=== PATIENT | female | born 1970 | race Caucasian/White ===

== ENCOUNTER 2020-03-10 13:45 | Emergency (ER) | payer OTHER, SELFPAY ==
[2020-03-10 14:04] VITALS: BP 99/64; PULSE 72; RESP 17; TEMP 36.5; O2SAT 100
--- NOTE | 2020-03-10 15:17 | ED.DENTAL ---
HPI - Dental/Oral General Chief complaint: Dental/Oral Stated complaint: TOOTH ABSCESS Time Seen by Provider: 03/10/20 14:11 Source: patient Mode of arrival: ambulatory Limitations: no limitations History of Present Illness HPI Narrative: This is a 50-year-old female that presents to the emergency department for toothache worsening over the last week. Reports she has had a cracked tooth for some time. Reports she has had worsening pain and is been unable to see a dentist. Denies fever. MD Complaint: tooth pain Location: Tooth # (30) Related Data Home Medications Medication Instructions Recorded Confirmed oxybutynin chloride 03/10/20 03/10/20 venlafaxine mg PO 03/10/20 Allergies Allergy/AdvReac Type Severity Reaction Status Date / Time naproxen Allergy Unknown Anaphylactic Verified 03/10/20 14:06 Shock Review of Systems Review of Systems: Narrative: CONSTITUTIONAL: Denies fever ENT: Reports dentalgia All systems reviewed & are unremarkable except as noted in HPI and below PMFSH Past Medical History Medical History (Updated 03/10/20 @ 15:22 by Ashley Carter PA-C) History of depression Family History Family History (Updated 11/11/14 @ 14:05 by DOCTOR UNKNOWN) Other Depression Family history of attention deficit hyperactivity disorder (ADHD) Family history of chronic obstructive pulmonary disease Family history of gynecological problem Social History Social History (Updated 03/10/20 @ 15:22 by Ashley Carter PA-C) Substance use: never Gender identity (if verbalized by the patient): Female Exam Narrative: Exam Narrative: GENERAL: Well-appearing, well-nourished, and in no acute distress. HEAD: Normocephalic, atraumatic. EYES: EOMI. ENT: Mucous membranes moist. Oropharynx without tonsillar hypertrophy exudate or other lesions. Tooth #30 tender to palpation and cracked, no surrounding erythema or fluctuance to suggest abscess NECK: Supple. No adenopathy or masses. CHEST: Airway patent EXTREMITIES: Normal range of motion. No edema. SKIN: Warm, dry, no rash. NEURO: No focal deficits. Alert and oriented x3. PSYCH: Normal mood and affect Course Vital Signs Vital signs: Vital Signs Temperature 97.7 F 03/10/20 14:04 Pulse Rate 72 03/10/20 14:04 Respiratory Rate 17 03/10/20 14:04 Blood Pressure 99/64 L 03/10/20 14:04 Pulse Oximetry 100 03/10/20 14:04 Temperature 97.7 F 03/10/20 14:04 Pulse Rate 72 03/10/20 14:04 Respiratory Rate 17 03/10/20 14:04 Blood Pressure 99/64 L 03/10/20 14:04 Pulse Oximetry 100 03/10/20 14:04 MDM - Dental/Oral MDM Narrative Medical decision making narrative: Patient presents the emergency department for toothache worsening over the last week. She is afebrile and nontoxic-appearing. No erythema or fluctuance on exam to suggest abscess. Patient will be started on oral antibiotics and was instructed to follow-up with dentist. She was given warnings to return to the ER Critical Care Time Critical Care Time Critical Care Time: No Discharge Plan Discharge Clinical Impression: Toothache Patient Disposition: Home, Self-Care Condition: Stable Instructions: Antibiotic Form, Toothache (ED) Additional Instructions: Return to the Emergency Department if you experience fever >101, increasing swelling and redness of your tooth, or any other symptoms that are concerning to you Take antibiotic as prescribed. Tylenol or Ibuprofen as needed for pain. You can apply a dab of clove oil to a Qtip and apply to the tooth to help numb the area Follow up with dentist. Dr Blu Mckenna at [facility] Prescriptions: New amoxicillin-pot clavulanate 875-125 mg tablet 1 tablet PO Q12H 7 Days Qty: 14 RF: 0 No Action venlafaxine 75 mg capsule,extended release 24hr PO RF: 0 oxybutynin chloride 5 mg tablet RF: 0 Follow-up/Referrals: Deon,MD Dino [Primary Care Provider] -
[2020-03-10 15:36] VITALS: BP 106/58; PULSE 63; RESP 18; O2SAT 100
== END 2020-03-10 15:37 | disposition home or self-care (01) ==
PROVIDERS: Emergency Provider Family Medicine; PCP Family Medicine
DX: K08.89 Other specified disorders of teeth and supporting structures (principal); F32.9 Major depressive disorder, single episode, unspecified
CPT/HCPCS: 99283

== ENCOUNTER 2021-12-24 00:25 | Day surgery (SDC) | payer OTHER, SELFPAY ==
[2021-10-15 13:24] VITALS: BMI 18.9
[2021-12-07 13:46] VITALS: BMI 18.9
--- NOTE | 2021-12-24 09:25 | WPDANESEPPF ---
Anes - Initial Pre Proc Eval Procedure: Operation Date: 12/24/21 11:30 Proposed Procedures p Screening Colonoscopy - Shaheed Rooney MD Date/Time: 12/24/21 09:25 Surgeon: Shaheed Rooney MD Pre Op Diagnosis: neoplasm screening Patient Data Age: 51 Gender: F Height: 1.78 m Weight: 60 kg Allergies Allergy/AdvReac Type Severity Reaction Status Date / Time naproxen Allergy Unknown Anaphylactic Verified 12/24/21 10:52 Shock Home Medications Medication Instructions Recorded Confirmed Type oxybutynin chloride 5 mg tablet 5 mg PO DAILY 03/10/20 12/24/21 History venlafaxine 75 mg capsule,extended 150 mg PO DAILY 03/10/20 12/24/21 History release 24 hr quetiapine 100 mg tablet 100 mg PO HS 10/15/21 12/24/21 History Patient hx anesthesia problems: none Family hx anesthesia problems: none Results Review: All pre-operative results and documents have been reviewed as part of the pre-operative evaluation. [facility] Past Medical History Medical History Anxiety Bipolar 1 disorder Encounter for insertion of mirena IUD 2018? Encounter for IUD removal (12/19/21) mirena iud removal History of depression Insomnia Smoker Family History Family History Other Depression Family history of attention deficit hyperactivity disorder (ADHD) Family history of chronic obstructive pulmonary disease Family history of gynecological problem Social History Social History Smoking packs per day: 0.75 Smoking cigarettes per day: 15.0 Years smoked: 15 Smoking pack-years: 11.25 Smoking status: Current every day smoker Tobacco type: cigarettes Alcohol intake: never Substance use: never Living arrangements: with family Gender identity (if verbalized by the patient): Female Spiritual care concerns: No Anes - Eval Final PreProcedure Day of Procedure 12/24/21 09:25 Patient weight: normal Heart: regular rate and rhythm Lungs: clear to auscultation and normal air movement Airway: Mallampati scale class II Neurological: alert and oriented Last oral intake: >/= 8 hours ASA classification: III Emergent: no Anesthetic plan: proceed Anesthesia type and monitoring: general GIVS Results Review: All pre-operative results and documents have been reviewed as part of the pre-operative evaluation. Informed Consent: The patient's anesthetic plan and its attendant risks and benefits were discussed with the patient/family/POA. Questions were solicited and answers provided to the satisfaction of the patient/family/POA.
[2021-12-24 10:53] VITALS: BP 163/100; PULSE 71; RESP 20; TEMP 36.2; O2SAT 100; BMI 18.9
[2021-12-24] MEDS: LACTATED RINGERS 1,000 ML 150 ML IV CONT (11:02)
--- NOTE | 2021-12-24 12:04 | PM.HPGS ---
History of Present Illness History of Present Illness Consent: Risks, benefits, and alternatives have been discussed and questions answered. Patient agrees to proceed with procedure. Chief complaint: neoplasm screening Narrative: Rajat Arthur is a 51 year old female here for first screening colonoscopy Review of Systems Constitutional: Constitutional: Denies headache(s) and Denies weakness Eyes: Eyes: Denies blurry vision ENT: Reports Normal hearing present, Denies headache(s) and Denies neck pain Cardiovascular: Cardiovascular: Denies chest pain and Denies dyspnea Respiratory: Respiratory: Denies dyspnea Gastrointestinal: Gastrointestinal: Reports no additional gastrointestinal complaints Genitourinary: Genitourinary: Denies dysuria Musculoskeletal: Musculoskeletal: Denies neck pain Integumentary/Breasts: Skin/Breast: Denies dry skin Neurologic: Reports Normal hearing present, Denies headache(s) and Denies weakness Psychiatric: Psychiatric: Denies anxiety Endocrine: Endocrine: Denies change in body appearance Hematologic/Lymphatic: Hematologic/Lymphatic: Denies easy bleeding Allergic/Immunologic: Allergic/Immunologic: Denies urticaria PMFSH Past Medical History Medical History Anxiety Bipolar 1 disorder Colon cancer screening Encounter for insertion of mirena IUD 2018? Encounter for IUD removal (12/19/21) mirena iud removal History of depression Insomnia Smoker Family History Family History Other Depression Family history of attention deficit hyperactivity disorder (ADHD) Family history of chronic obstructive pulmonary disease Family history of gynecological problem Social History Social History Smoking packs per day: 0.75 Smoking cigarettes per day: 15.0 Years smoked: 15 Smoking pack-years: 11.25 Smoking status: Current every day smoker Tobacco type: cigarettes Alcohol intake: never Substance use: never Living arrangements: with family Gender identity (if verbalized by the patient): Female Spiritual care concerns: No Meds Home Medications and Allergies Home Medications Medication Instructions Recorded Confirmed Type oxybutynin chloride 5 mg tablet 5 mg PO DAILY 03/10/20 12/24/21 History venlafaxine 75 mg capsule,extended 150 mg PO DAILY 03/10/20 12/24/21 History release 24 hr quetiapine 100 mg tablet 100 mg PO HS 10/15/21 12/24/21 History Allergies Allergy/AdvReac Type Severity Reaction Status Date / Time naproxen Allergy Unknown Anaphylactic Verified 12/24/21 10:52 Shock Vital Signs Vital Signs - 24 hr 12/24/21 10:53 Temperature 97.2 F L Pulse Rate 71 Respiratory Rate 20 Blood Pressure 163/100 H Pulse Oximetry 100 Oxygen Delivery Room Air Exam Const: General: comfortable and no acute distress HENMT: General nose exam: Normal nares present Eyes: General: appearance normal, both eyes and all related structures Neck: Neck: no JVD Resp: Auscultation: clear to auscultation bilaterally Cardio: Rate: regular rate Rhythm: regular rhythm GI: Inspection: non-distended GI Palp: Yes Soft to palpation Skin: General skin exam: normal color Neuro: General: gait normal Speech: normal speech Extrem: General: normal to inspection Psych: Mental Status: mental status grossly normal Assessment and Plan Assessment and plan (1) Colon cancer screening: Code(s): Z12.11 - Encounter for screening for malignant neoplasm of colon Status: Acute Assessment and Plan: colonoscopy
[2021-12-24 12:37] VITALS: BP 120/60; PULSE 67; RESP 16; O2SAT 100
[2021-12-24 12:47] VITALS: BP 126/80; PULSE 63; RESP 14; O2SAT 100
[2021-12-24 12:57] VITALS: BP 122/76; PULSE 56; RESP 20; O2SAT 100
== END 2021-12-24 13:08 | disposition home or self-care (01) ==
PROVIDERS: PCP Family Medicine; Visit Provider Internal Medicine Gastroenterology
PROC: 0DJD8ZZ Inspection of Lower Intestinal Tract, Via Natural or Artificial Opening Endoscopic (ICD-10-PCS; CPT 45378; principal; 2021-12-24 11:30)
DX: Z12.11 Encounter for screening for malignant neoplasm of colon (principal); K64.8 Other hemorrhoids; F41.9 Anxiety disorder, unspecified; F31.9 Bipolar disorder, unspecified; G47.00 Insomnia, unspecified; F17.210 Nicotine dependence, cigarettes, uncomplicated
CPT/HCPCS: 45378; J2704; J7120